=== PATIENT | female | born 1995 | race Caucasian/White ===

== ENCOUNTER 2016-03-29 10:32 | Emergency (ER) | payer OTHER ==
[~2016-03-29] VITALS: Wt 68.2 kg
[~2016-03-29 10:32] MED LIST: CITA10TA72 PO; DIVA250T60 PO; IBUP-1542 PO
[2016-03-29] MEDS ORDERED: FLUT9.9S NASAL (11:27)
--- NOTE | 2016-03-29 11:27 | ERD ---
ER Documentation Chief Complaint Date/Time DATE: 03/29/16 TIME: 11:21 Chief Complaint cough, barraza, runny nose HPI This patient is a 20-year-old female with no significant medical history presenting to the emergency department for cough and congestion which has been ongoing for 2 days. The patient denies any nausea, vomiting, diarrhea, urinary sxs, fever, chills, or other sxs at this time. ROS All systems reviewed and are negative except as per history of present illness. Medications Home Meds Active Scripts Ibuprofen* (Motrin*) 600 Mg Tab, 600 MG PO Q6, #20 TAB Prov:KRYSTAL CHACKO PA-C 03/29/16 Benzonatate* (Benzonatate*) 100 Mg Capsule, 100 MG PO TID Y for COUGH, #20 CAP Prov:KRYSTAL CHACKO PA-C 03/29/16 Fluticasone Propionate (Flonase Allergy Relief) 9.9 Ml [place].susp, 1 SPRAY NASAL DAILY, #1 BOTTLE TO EACH NOSTRIL Prov:KRYSTAL CHACKO PA-C 03/29/16 Ibuprofen* (Ibuprofen*) 600 Mg Tablet, 600 MG PO DAILY, #30 TAB Take daily on first 5 days of period. Prov:GILMA HERNANDEZ TECHNOLOGY DIRECTOR 11/18/14 Reported Medications Divalproex Sodium* (Depakote*) 250 Mg Tablet.dr, 250 MG PO DAILY 07/05/13 Citalopram Hydrobromide* (Celexa*) 10 Mg Tablet, 10 MG PO DAILY 07/05/13 Allergies Allergies: Coded Allergies: Penicillins (Verified Allergy, Unknown, 01/09/14) PMhx/Soc History of Surgery: No Anesthesia Reaction: No Hx Neurological Disorder: No Hx Respiratory Disorders: Yes (asthma) Hx Cardiac Disorders: No Hx Psychiatric Problems: Yes Hx Miscellaneous Medical Probl: Yes (MOOD DISORDER STOPPED CELEXA AND DEPAKOTE) Hx Alcohol Use: Yes (occassional) Hx Substance Use: No Hx Tobacco Use: No Smoking Status: Never smoker FmHx non contributory for chief complaint. Physical Exam Vitals Vital Signs Date Time Temp Pulse Resp B/P Pulse Ox O2 Delivery O2 Flow Rate FiO2 03/29/16 10:55 98.6 74 20 123/78 99 Physical Exam Const: The patient is resting comfortably in no acute distress. Head: Atraumatic Eyes: Normal Conjunctiva ENT: Normal External Ears, Nose and Mouth. Neck: Full range of motion, supple, No meningismus. Resp: Clear to auscultation bilaterally Cardio: Regular rate and rhythm, no murmurs Abd: Soft, non tender, non distended. Normal bowel sounds Skin: No petechiae or rashes Back: No midline or flank tenderness Ext: No cyanosis, or edema Neur: Awake and alert Psych: Normal Mood and Affect Procedures/MDM 20 year old female presents with congestion and cough for 2 days. Physical examination is unremarkable for any lung findings and there is no facial pain to palpation. I believe the patient's symptoms are viral in etiology and her primary diagnosis is upper respiratory infection. She will be treated symptomatically with prescriptions for Flonase and Tessalon Perles and she is stable for discharge at this time. Her questions and concerns have been addressed and she agrees with the plan. Departure Diagnosis: Primary Impression: Upper respiratory infection Condition: Stable Patient Instructions: Preventing Common Respiratory Infections Additional Instructions: Follow-up with your primary care physician within 1 week. Return to the emergency department immediately should you have any new or worsening symptoms, uncontrolled fevers, or other unexplained symptoms. Take all medications as directed. KRYSTAL CHACKO PA-C Mar 29, 2016 11:27
[2016-03-29] MEDS ORDERED: BENZ-5 PO (11:28)
[2016-03-29] MEDS ORDERED: IBUP-1542 PO (11:28)
== END 2016-03-29 11:35 | disposition home or self-care (01) ==
LOC: FTE 10:32
DX: J06.9 Acute upper respiratory infection, unspecified (principal); J45.909 Unspecified asthma, uncomplicated
CPT/HCPCS: 99283

== ENCOUNTER 2016-04-18 09:41 | Emergency (ER) | payer OTHER ==
[~2016-04-18] VITALS: Ht 170.2 cm; Wt 62.0 kg
[~2016-04-18 09:41] MED LIST changes: +BENZ-5 PO; +FLUT9.9S NASAL
[2016-04-18 09:46] VITALS: Ht 170.2 cm; Wt 62.0 kg
[2016-04-18 10:59] LABS: URINE BLOOD (Dip) POC Trace-intact (NEGATIVE)
--- NOTE | 2016-04-18 11:22 | RADRPT ---
PROCEDURE: XR Chest AP portable CLINICAL INDICATION: Palpitations, chest pain TECHNIQUE: An AP portable radiograph of the chest was submitted. COMPARISON: None. FINDINGS: Support Hardware: None Cardiovascular: The cardiovascular silhouette appears unremarkable. Lung Ambrosio: The lung ambrosio appear clear with no nodule, alveolar infiltrate, for a interstitial pr ominence evident. Pleural Spaces: No pneumothorax or pleural effusion is identified. Osseous Structures: There is a mild S-shaped scoliotic curve to the thoracic spine. Soft Tissues: The soft tissues appear unremarkable. IMPRESSION: 1. Mild S-shaped scoliotic curve to the thoracic spine. 2. Otherwise, unremarkable portable chest. Physician Curt Date Time Electronically viewed and signed by Physician Curt on 04/18/2016 11:22 /
[2016-04-18] MEDS ORDERED: IBUP-1542 PO (12:57)
--- NOTE | 2016-04-18 13:10 | ERD ---
ER Documentation Chief Complaint Date/Time DATE: 04/18/16 TIME: 13:08 Chief Complaint pt bib self with c/o "felt heart racing earlier" better now, denies pain HPI 20-year-old female with a past medical history of asthma presents to the ED complaining of palpitations that occurred last night. States that she feels like her chest feels tight. States that she is concerned because her father has heart disease. Denies any family history of heart attacks. States that her last menses was on April 10, 2016. Denies any cough, rhinorrhea, fever, shortness of breath, wheezing, abdominal pain, nausea, vomiting, dyspnea on exertion or orthopnea. ROS All systems reviewed and are negative except as per history of present illness. Medications Home Meds Active Scripts Ibuprofen* (Motrin*) 600 Mg Tab, 600 MG PO Q6, #30 TAB Prov:CRUZ ANTHONY PA-C 04/18/16 Ibuprofen* (Motrin*) 600 Mg Tab, 600 MG PO Q6, #20 TAB Prov:KRYSTAL CHACKO PA-C 03/29/16 Benzonatate* (Benzonatate*) 100 Mg Capsule, 100 MG PO TID Y for COUGH, #20 CAP Prov:KRYSTAL CHACKO PA-C 03/29/16 Fluticasone Propionate (Flonase Allergy Relief) 9.9 Ml [place].susp, 1 SPRAY NASAL DAILY, #1 BOTTLE TO EACH NOSTRIL Prov:KRYSTAL CHACKO PA-C 03/29/16 Ibuprofen* (Ibuprofen*) 600 Mg Tablet, 600 MG PO DAILY, #30 TAB Take daily on first 5 days of period. Prov:GILMA HERNANDEZ NP 11/18/14 Reported Medications Divalproex Sodium* (Depakote*) 250 Mg Tablet.dr, 250 MG PO DAILY 07/05/13 Citalopram Hydrobromide* (Celexa*) 10 Mg Tablet, 10 MG PO DAILY 07/05/13 Allergies Allergies: Coded Allergies: Penicillins (Verified Allergy, Unknown, 01/09/14) PMhx/Soc History of Surgery: No Anesthesia Reaction: No Hx Neurological Disorder: No Hx Respiratory Disorders: Yes (asthma) Hx Cardiac Disorders: No Hx Psychiatric Problems: Yes Hx Miscellaneous Medical Probl: Yes (MOOD DISORDER STOPPED CELEXA AND DEPAKOTE) Hx Alcohol Use: Yes (occassional) Hx Substance Use: No Hx Tobacco Use: No Physical Exam Vitals Vital Signs Date Time Temp Pulse Resp B/P Pulse Ox O2 Delivery O2 Flow Rate FiO2 04/18/16 09:46 97.1 82 18 141/67 99 Physical Exam Const: [id number]-[id number], well-nourished. In no acute distress. Head: Atraumatic, normocephalic Eyes: Normal Conjunctiva without injection. No purulent discharge. PERRL. EOMI ENT: Normal external ear. Ear canal without erythema. Tympanic membrane pearly soni without effusion or bulging. Nasal canal clear with normal turbinates. Moist oropharynx without tonsillar exudates. Non-erythematous pharynx. Uvula midline. No drooling. No trismus. Neck: Full range of motion. No meningismus. No cervical lymphadenopathy. Resp: Clear to auscultation bilaterally. No wheezing, rhonchi, rales, or crackles. No accessory muscle use. No retractions. Cardio: Regular rate and rhythm. No murmurs, rubs or gallops. Abd: Soft, non tender, non distended. Normal bowel sounds. No palpable masses. No rebound tenderness. No guarding. Skin: No petechiae or rashes Back: No midline tenderness. No CVA tenderness. Ext: No cyanosis, or edema. Neur: Awake and alert. Psych: Normal Mood and Affect Results 24 hrs Laboratory Tests Test 04/18/16 11:00 Bedside Urine Blood Trace-intact Bedside Urine Glucose (UA) Negative Bedside Urine Ketones (LAB) Negative Bedside Urine Leukocyte Esterase (L Negative Bedside Urine Nitrite (LAB) Negative Bedside Urine Protein (LAB) Negative Bedside Urine pH (LAB) 6.0 Procedures/MDM This is a 20-year-old female with no significant past medical history presents the ED complaining of palpitations and chest tightness. Patient is afebrile and nontoxic-appearing. An EKG, chest x-ray was ordered to further evaluate patient. Patient also requested for urine test to be done here in the ED. Urine dip shows trace hematuria likely secondary to residual blood from patient's menses. Urine is negative here in the ED. EKG reviewed and interpreted by Dr. Guardado Rate/Rhythm: [74 bpm, Normal Sinus Rhythm] No ectopy, no ST elevations, normal axis. QRS, ST, T-waves: [No changes consistent w/ acute ischemia] Impression: [No evidence of ischemia or arrhythmia] PROCEDURE: XR Chest AP portable CLINICAL INDICATION: Palpitations, chest pain TECHNIQUE: An AP portable radiograph of the chest was submitted. COMPARISON: None. FINDINGS: Support Hardware: None Cardiovascular: The cardiovascular silhouette appears unremarkable. Lung Hurley: The lung hurley appear clear with no nodule, alveolar infiltrate, for a interstitial prominence evident. Pleural Spaces: No pneumothorax or pleural effusion is identified. Osseous Structures: There is a mild S-shaped scoliotic curve to the thoracic spine. Soft Tissues: The soft tissues appear unremarkable. IMPRESSION: 1. Mild S-shaped scoliotic curve to the thoracic spine. 2. Otherwise, unremarkable portable chest. Patient checks x-ray shows mild scoliosis noted of her thoracic spine. Low suspicion for acute myocardial infarction, pneumothorax, pneumonia, cardiac tamponade, pulmonary embolism, AAA, aortic dissection, Boerhaave's syndrome, cardiac dysrhythmias,meningitis, intracranial bleed, seizure, stroke, TIA or other emergent conditions. Patient is ambulating here in the ED without difficulty. Denies saddle anesthesia, numbness or tingling, urine or bowel incontinence, weakness. Low suspicion for cauda equina syndrome, cord compression, nephrolithiasis, aortic aneurysm, aortic dissection, epidural abscess, spinal hematoma, malignancy, pyelonephritis, or other emergent conditions. Discharge medications: Ibuprofen Follow up with primary care physician in 1-2 days. Instructed patient to return to the ED sooner for any worsening symptoms. Patient's questions were answered. Patient understood and agreed with discharge plan. Patient discharged stable. Departure Diagnosis: Primary Impression: Palpitations Additional Impression: Urine test negative Condition: Stable Patient Instructions: Understanding Scoliosis, Your Scoliosis Evaluation, Palpitations Referrals: COMMUNITY CLINICS YOU HAVE RECEIVED A MEDICAL SCREENING EXAM AND THE RESULTS INDICATE THAT YOU DO NOT HAVE A CONDITION THAT REQUIRES URGENT TREATMENT IN THE EMERGENCY DEPARTMENT. FURTHER EVALUATION AND TREATMENT OF YOUR CONDITION CAN WAIT UNTIL YOU ARE SEEN IN YOUR DOCTORS OFFICE WITHIN THE NEXT 1-2 DAYS. IT IS YOUR RESPONSIBILITY TO MAKE AN APPOINTMENT FOR FOLOW-UP CARE. IF YOU HAVE A PRIMARY DOCTOR --you should call your primary doctor and schedule an appointment IF YOU DO NOT HAVE A PRIMARY DOCTOR YOU CAN CALL OUR PHYSICIAN REFERRAL HOTLINE AT IF YOU CAN NOT AFFORD TO SEE A PHYSICIAN YOU CAN CHOSE FROM THE FOLLOWING [facility] [address] [place] [facility] [address] [place] [facility] [address] [facility] [address] [facility] [address] [facility]. [facility]. [address] [facility]. [facility] YOU HAVE RECEIVED A MEDICAL SCREENING EXAM AND THE RESULTS INDICATE THAT YOU DO NOT HAVE A CONDITION THAT REQUIRES URGENT TREATMENT IN THE EMERGENCY DEPARTMENT. FURTHER EVALUATION AND TREATMENT OF YOUR CONDITION CAN WAIT UNTIL YOU ARE SEEN IN YOUR DOCTORS OFFICE WITHIN THE NEXT 1-2 DAYS. IT IS YOUR RESPONSIBILITY TO MAKE AN APPOINTMENT FOR FOLOW-UP CARE. IF YOU HAVE A PRIMARY DOCTOR --you should call your primary doctor and schedule and appointment IF YOU DO NOT HAVE A PRIMARY DOCTOR YOU CAN CALL OUR PHYSICIAN REFERRAL HOTLINE AT . IF YOU CAN NOT AFFORD TO SEE A PHYSICIAN YOU CAN CHOSE FROM THE FOLLOWING [facility]: [facility] [address] [place] [address] [facility] [address] [place] [address] [facility] [address] [place] [address] [facility] URGENT CARE/SPECIALTIES Additional Instructions: FOLLOW UP WITH YOUR PRIMARY CARE PHYSICIAN TOMORROW. Return to this facility if you are not improving as expected. CRUZ ANTHONY PA-C Apr 18, 2016 13:10
[2016-04-18 13:20] VITALS: BP 132/66; PULSE 70; RESP 18; TEMP 97.1
== END 2016-04-18 13:20 | disposition home or self-care (01) ==
LOC: FTE 09:41
DX: R00.2 Palpitations (principal); J45.909 Unspecified asthma, uncomplicated; Z32.02 Encounter for pregnancy test, result negative
CPT/HCPCS: 71010; 81003; 93005

== ENCOUNTER 2016-04-21 10:44 | Emergency (ER) | payer OTHER ==
[~2016-04-21] VITALS: Wt 64.0 kg
[2016-04-21] MEDS ORDERED: SOD CHLORIDE 0.9% 1,000 ML IV STA (12:00)
[2016-04-21] MEDS ORDERED: ONDANSETRON 4 MG INJ IV STA (12:00)
[2016-04-21] MEDS ORDERED: DICLOFENAC SODIUM 37.5 MG/ML VIAL IV STA (12:21)
[2016-04-21 12:23] LABS: BASOPHILS % 0.6 % (0.0-2.0); EOSINOPHILS # 0.3 10^3/ul (0.0-0.5); EOSINOPHILS % 3.3 % (0.0-7.0); HEMATOCRIT 37.8 % (37.0-47.0); HEMOGLOBIN 12.6 g/dl (12.0-16.0); LYMPHOCYTES # 1.1 10^3/ul (0.8-2.9); MEAN CORPUSCULAR HEMOGLOBIN 28.6 pg (29.0-33.0); MEAN CORPUSCULAR HGB CONC 33.5 g/dl (32.0-37.0); MEAN CORPUSCULAR VOLUME 85.4 fl (82.0-101.0); MEAN PLATELET VOLUME 8.5 fl (7.4-10.4); MONOCYTE # 0.5 10^3/ul (0.3-0.9); MONOCYTES % 6.3 % (0.0-11.0); NEUTROPHIL # 6.2 10^3/ul (1.6-7.5); NEUTROPHILS % 75.8 % (39.0-77.0); PLATELET COUNT 219 10^3/UL (140-440); RED BLOOD COUNT 4.42 10^6/ul (4.20-5.40); RED CELL DISTRIBUTION WIDTH 17.9 % (11.5-14.5); UNCORRECTED WBC 8.2 10^3/ul (4.8-10.8); WHITE BLOOD COUNT 8.2 10^3/ul (4.8-10.8)
[2016-04-21 12:30] LABS: ALBUMIN 4.2 g/dl (3.3-4.9); POTASSIUM 4.2 mmol/L (3.5-5.1)
[2016-04-21 12:33] LABS: ALBUMIN/GLOBULIN RATIO 1.5; BILIRUBIN,INDIRECT 0.2 mg/dl (0-1.1); BILIRUBIN,TOTAL 0.2 mg/dl (0.2-1.3); CALCIUM 9.3 mg/dl (8.4-10.2); CREATININE 0.65 mg/dl (0.44-1.00)
[2016-04-21] MEDS ORDERED: morphine 4 MG/ML VIAL IV STA (12:46)
[2016-04-21 13:03] LABS: CONDITION 1; LH ANALYZER COMMENTS 1
[2016-04-21] MEDS ORDERED: ONDA4TAB14 PO (13:42)
--- NOTE | 2016-04-21 13:52 | ERD ---
ER Documentation Chief Complaint Date/Time DATE: 04/21/16 TIME: 13:50 Chief Complaint abd pain with nausea and vomiting this morning after eating meat last night HPI Patient is a 20-year-old female who states she does not eat meat but last night she ate some meat and now she has abdominal pain with nausea and vomiting. She also admits to generalized abdominal pain. Pain is 8 out of 10 throbbing nonradiating. Denies any dysuria hematuria or frequency. She states this happened before she has had good relief of her symptoms after IV fluids. ROS All systems reviewed and are negative except as per history of present illness. Medications Home Meds Active Scripts Ondansetron (Ondansetron Odt) 4 Mg Tab.rapdis, 4 MG PO Q6H Y for NAUSEA AND/OR VOMITING, #15 TAB Prov:ADDY MCDANIEL PA-C 04/21/16 Ibuprofen* (Motrin*) 600 Mg Tab, 600 MG PO Q6, #30 TAB Prov:CRUZ ANTHONY PA-C 04/18/16 Ibuprofen* (Motrin*) 600 Mg Tab, 600 MG PO Q6, #20 TAB Prov:KRYSTAL CHACKO PA-C 03/29/16 Benzonatate* (Benzonatate*) 100 Mg Capsule, 100 MG PO TID Y for COUGH, #20 CAP Prov:KRYSTAL CHACKO PA-C 03/29/16 Fluticasone Propionate (Flonase Allergy Relief) 9.9 Ml [place].susp, 1 SPRAY NASAL DAILY, #1 BOTTLE TO EACH NOSTRIL Prov:KRYSTAL CHACKO PA-C 03/29/16 Ibuprofen* (Ibuprofen*) 600 Mg Tablet, 600 MG PO DAILY, #30 TAB Take daily on first 5 days of period. Prov:GILMA HERNANDEZ VENDING MACHINE REFILLER 11/18/14 Reported Medications Divalproex Sodium* (Depakote*) 250 Mg Tablet.dr, 250 MG PO DAILY 07/05/13 Citalopram Hydrobromide* (Celexa*) 10 Mg Tablet, 10 MG PO DAILY 07/05/13 Allergies Allergies: Coded Allergies: Penicillins (Verified Allergy, Unknown, 01/09/14) PMhx/Soc History of Surgery: No Anesthesia Reaction: No Hx Neurological Disorder: No Hx Respiratory Disorders: Yes (asthma) Hx Cardiac Disorders: No Hx Psychiatric Problems: Yes Hx Miscellaneous Medical Probl: Yes (MOOD DISORDER STOPPED CELEXA AND DEPAKOTE) Hx Alcohol Use: Yes (occassional) Hx Substance Use: No Hx Tobacco Use: No FmHx Family History: No diabetes Physical Exam Vitals Vital Signs Date Time Temp Pulse Resp B/P Pulse Ox O2 Delivery O2 Flow Rate FiO2 04/21/16 10:47 98.8 75 21 119/71 98 Physical Exam General: well developed, well nourished, alert, nontoxic, no distress Head: normocephalic, atraumatic Neck: Supple, nontender, no lymphadenopathy, no midline tenderness Respiratory: Clear to auscaultation bilaterally, speaks in full sentences, no use of accesory muscles or labored breathing, no rales, ronchi, or wheezing Cardiovascular: RRR, No murmurs GI: soft, non tender, non distended, negative murphys sign, negative mcburneys point tenderness, no cva tenderness bilaterally, no rebound or guarding Result Diagram: 04/21/16 1210 04/21/16 1210 Results 24 hrs Laboratory Tests Test 04/21/16 12:10 Alanine Aminotransferase (ALT/SGPT) 24IU/L Albumin 4.2g/dl Albumin/Globulin Ratio 1.50 Alkaline Phosphatase 66IU/L Anion Gap 15 Aspartate Amino Transf (AST/SGOT) 34IU/L Basophils # 0.010^3/ul Basophils % 0.6% Blood Morphology Comment Blood Urea Nitrogen 8mg/dl Calcium Level 9.3mg/dl Carbon Dioxide Level 27mmol/L Chloride Level 106mmol/L Creatinine 0.65mg/dl Direct Bilirubin 0.00mg/dl Eosinophils # 0.310^3/ul Eosinophils % 3.3% Globulin 2.80g/dl Glucose Level 102mg/dl Hematocrit 37.8% Hemoglobin 12.6g/dl Indirect Bilirubin 0.2mg/dl Lipase 86U/L Lymphocytes # 1.110^3/ul Lymphocytes % 14.0% Mean Corpuscular Hemoglobin 28.6pg Mean Corpuscular Hemoglobin Concent 33.5g/dl Mean Corpuscular Volume 85.4fl Mean Platelet Volume 8.5fl Monocytes # 0.510^3/ul Monocytes % 6.3% Neutrophils # 6.210^3/ul Neutrophils % 75.8% Nucleated Red Blood Cells # 0.010^3/ul Nucleated Red Blood Cells % 0.0/100WBC Platelet Count 74848^3/UL Potassium Level 4.2mmol/L Red Blood Count 4.4210^6/ul Red Cell Distribution Width 17.9% Sodium Level 144mmol/L Total Bilirubin 0.2mg/dl Total Protein 7.0g/dl White Blood Count 8.210^3/ul Current Medications Medications (Trade) Dose Ordered Sig/Cristiano Route PRN Reason Start Time Stop Time Status Last Admin Dose Admin Sodium Chloride (NS) 1,000 ml @ 1,000 mls/hr Q1H STAT IV 04/21/16 12:00 04/21/16 12:59 DC 04/21/16 12:11 Ondansetron HCl (Zofran Inj) 4 mg ONCE STAT IV 04/21/16 12:00 04/21/16 12:02 DC 04/21/16 12:11 Diclofenac Sodium (Dyloject) 37.5 mg ONCE STAT IV 04/21/16 12:21 04/21/16 12:22 DC 04/21/16 12:53 Morphine Sulfate (morphine) 4 mg ONCE STAT IV 04/21/16 12:46 04/21/16 12:47 DC 04/21/16 12:55 Procedures/MDM 20-year-old female has abdominal pain with nausea and vomiting after food last night. Vital signs are normal. GI examination is benign. She was given IV fluids, Zofran, and Toradol she still stated she had a lot of pain and therefore she was given a dose of morphine. She felt much better afterwards. Her labs were all normal. She is discharged with Zofran. Recommended this patient follow up with her primary care doctor within 48 hours or return to the emergency room for any worsening of symptoms. However this time I do believe there is suitable for outpatient management. I answered all their questions and they agreed with the plan and were discharged home. Departure Diagnosis: Primary Impression: Abdominal pain Condition: Stable Patient Instructions: Abdominal Pain Additional Instructions: Call your primary care doctor TOMORROW for an appointment during the next 1-2 days.See the doctor sooner or return here if your condition worsens before your appointment time. ADDY MCDANIEL PA-C Apr 21, 2016 13:52
[2016-04-21 13:53] VITALS: BP 111/64; PULSE 68; RESP 18; TEMP 98.4
== END 2016-04-21 13:55 | disposition home or self-care (01) ==
LOC: FTE 10:44
DX: R10.84 Generalized abdominal pain (principal); R11.2 Nausea with vomiting, unspecified; J45.909 Unspecified asthma, uncomplicated
CPT/HCPCS: 36415; 80053; 83690; 85025; 96374; 96375; J2270; J2405; J7030; Z7502; Z7610

== ENCOUNTER 2016-09-27 11:27 | Emergency (ER) | payer MEDICAID, OTHER ==
[~2016-09-27] VITALS: Ht 175.3 cm; Wt 71.0 kg
[~2016-09-27 11:27] MED LIST changes: +ONDA4TAB14 PO
[2016-09-27 11:34] VITALS: Ht 175.3 cm; Wt 71.0 kg
[2016-09-27] MEDS ORDERED: IBUPROFEN 800 MG TAB PO ONE (12:30)
--- NOTE | 2016-09-27 12:42 | RADRPT ---
PROCEDURE: CT Brain without contrast. CLINICAL INDICATION: Fall and headache. TECHNIQUE: A multiplanar CT of the brain was performed on a CT scanner utilizing axial imaging fro m the skull base through the vertex without IV contrast. The CTDIvol is 44.77 mGy and the DLP is 63 0.2 mGycm. One or more of the following dose reduction techniques were utilized: Automated exposur e control, adjustment of the mA and/or kV according to patient size, use of iterative reconstruction technique. COMPARISON: None FINDINGS: No evidence of intracranial hemorrhage or abnormal extra-axial fluid collection. Large left supraorb ital and midline frontal scalp hematoma. No underlying calvarial orbital fracture. The brain parenchyma is normal attenuation morphology with preservation of soni white differentiatio n and age appropriate size of the ventricles and subarachnoid spaces. The basal cisterns, posterior fossa contents, brainstem, craniocervical junction, orbits, pituitary axis, paranasal sinuses, mastoid air cells, and calvarium are unremarkable. IMPRESSION: 1. No intracranial hemorrhage or acute intracranial abnormality. Large left supraorbital and midlin e scalp fracture. No underlying calvarial fracture RPTAT:AAJJ Physician Luca Date Time Electronically viewed and signed by Physician Luca on 09/27/2016 12:42 SHAJI/
--- NOTE | 2016-09-27 12:48 | RADRPT ---
PROCEDURE: CT facial bones without. CLINICAL INDICATION: Middle and headache. TECHNIQUE: A CT of the facial bones was performed on a multidetector CT scanner utilizing high-res olution axial images. Sagittal, coronal, and multiplanar reformatted images were made. The CTDIvol is 29.38 mGy and the DLP is 498.55 mGy-cm. One or more of the following dose reduction techniques w ere utilized: Automated exposure control, adjustment of the mA and/or kV according to patient size, use of iterative reconstruction technique. COMPARISON: None. FINDINGS: Extensive nasal bridge soft tissue hematoma with comminuted bilateral nasal bone fractures with righ tward deviation and depression. Buckling and minimally displaced fracture of the anterior superio r nasal septum. Large left midline and supraorbital/periorbital soft tissue hematoma. The nasal sept um is bowed to the left. The orbits and remaining maxillofacial structures are intact. The paranas al sinuses and nasal cavity are clear. The mastoid air cells are clear. The skull base structures are intact. IMPRESSION: 1. Complex comminuted bilateral nasal bone fractures with rightward deviation and depression and ass ociated soft tissue hematoma of the nasal bridge . 2. Large left midline and supraorbital/periorbital soft tissue hematoma with facial soft tissue swel ling. 3. Nondisplaced fracture of the anterior nasal septum. 4. The remaining maxillofacial structures and orbits are intact. 5. The paranasal sinuses and nasal cavity as well as best or else cells are clear. The remaining m axillofacial structures and orbits are intact. RPTAT:AAJJ Physician Luca Date Time Electronically viewed and signed by Physician Luca on 09/27/2016 12:48 SHAJI/
--- NOTE | 2016-09-27 13:00 | RADRPT ---
PROCEDURE: XR Hand. CLINICAL INDICATION: Right hand pain. TECHNIQUE: Three views of the right hand were obtained. COMPARISON: No prior studies are available for comparison. FINDINGS: No acute fracture or dislocation is noted. Bone mineralization is normal. No significant soft tissu e swelling is seen. IMPRESSION: 1. No acute fracture or dislocation is seen. RPTAT: HFN .Lee Cordero MD, Date Time Electronically viewed and signed by .Lee Cordero MD, on 09/27/2016 13:00 .N/
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
[2016-09-27] MEDS ORDERED: DIAZ-90 PO (13:14)
[2016-09-27] MEDS ORDERED: IBUP800T25 PO (13:14)
== END 2016-09-27 14:04 | disposition home or self-care (01) ==
LOC: E/R 11:27
DX: S02.2XXA Fracture of nasal bones, initial encounter for closed fracture (principal); S00.83XA Contusion of other part of head, initial encounter; J45.909 Unspecified asthma, uncomplicated; W01.198A Fall on same level from slipping, tripping and stumbling with subsequent striking against other object, initial encounter; Y92.9 Unspecified place or not applicable
CPT/HCPCS: 70450; 70486; 73130; 93005; Z7502; Z7610